=== PATIENT | female | born 1965 | race Caucasian/White ===

== ENCOUNTER 2018-12-10 07:52 | Emergency (ER) | payer BC ==
[~2018-12-10] VITALS: Ht 162.6 cm; Wt 88.0 kg
[2018-12-10 08:02] VITALS: BP 136/63
--- NOTE | 2018-12-10 08:31 | NUR ---
URINE SPECIMEN COLLECTED SENT TO LAB.
[2018-12-10 08:42] LABS: APPEARANCE,URINE Slightly Cloudy (CLEAR); BILIRUBIN,URINE Negative (NEGATIVE); BLOOD, URINE Moderate Ery/uL (NEGATIVE); COLOR,URINE Yellow (YELLOW); KETONES,URINE Negative (NEGATIVE); LEUKOCYTE ESTERASE ,URINE Negative (NEGATIVE); NITRITE, URINE Negative (NEGATIVE); PH,URINE 5.5 (5.0-8.0); PROTEIN,URINE Trace mg/dl (NEGATIVE); UGLUCOSE Negative (NEGATIVE); UROBILINOGEN,URINE 0.2 EU/dL (0.2)
[2018-12-10 08:59] LABS: BACTERIA,URINE Few /HPF (None Seen); WBC,URINE 0-3 /HPF (0-3)
[2018-12-10 09:00] LABS: SQUAMOUS EPITHELIAL CELL,UR Many /HPF (None Seen)
--- NOTE | 2018-12-10 09:33 | NUR ---
for discharge Patient discharged to home in stable condition. Written and verbal after care instructions given. Patient verbalizes understanding of instruction. home ambulatory Stable
== END 2018-12-10 09:33 | disposition home or self-care (01) ==
LOC: ER 07:54
DX: M54.5 Low back pain (principal); I10 Essential (primary) hypertension
CPT/HCPCS: 81000-TC

== ENCOUNTER 2024-01-16 01:11 | Emergency (ER) | payer BC ==
[~2024-01-16] VITALS: Ht 175.3 cm; Wt 97.5 kg
[2024-01-16 02:16] LABS: BASOPHILS % (AUTO) 0.6 % (0.0-2.0); EOSINOPHILS # (AUTO) 0.1 K/uL (0.0-0.7); EOSINOPHILS % (AUTO) 2.3 % (0.0-6.0); HEMATOCRIT 36 % (33-45); HEMOGLOBIN 11.8 g/dL (11.5-14.8); LYMPHOCYTES # (AUTO) 1.2 K/uL (0.8-4.8); LYMPHOCYTES % (AUTO) 32.3 % (20.0-44.0); MEAN CORPUSCULAR HEMOGLOBIN 27 PG (26.0-33.0); MEAN CORPUSCULAR HGB CONC 33 g/dl (31.0-36.0); MEAN CORPUSCULAR VOLUME 81 fL (82-100); MONOCYTES # (AUTO) 0.8 K/uL (0.1-1.30); MONOCYTES % (AUTO) 21.4 % (2.0-12.0); NEUTROPHILS # (AUTO) 1.6 K/uL (1.8-8.9); NEUTROPHILS % (AUTO) 43.4 % (43.0-81.0); PLATELET COUNT (AUTO) 208 K/uL (150-450); RED BLOOD CELL COUNT(AUTO) 4.46 MIL/uL (4.0-5.2); RED CELL DISTRIBUTION WIDTH 14.7 % (11.5-15.0); WHITE BLOOD COUNT (AUTO) 3.8 K/uL (4.3-11.0)
[2024-01-16] MEDS ORDERED: IOHEXOL-350 100 ML VIAL IV ONE (02:23)
[2024-01-16 02:43] LABS: CALCIUM, SERUM 8.9 mg/dL (8.5-10.1); CARBON DIOXIDE 32 mmol/L (21-32); CHLORIDE 104 mmol/L (98-107); GLUCOSE 99 mg/dL (74-106); POTASSIUM 3.6 mmol/L (3.5-5.1); SODIUM SERUM 141 mmol/L (136-145); UREA NITROGEN, BLOOD 10 mg/dL (7-18)
[2024-01-16 03:09] LABS: BASOPHILS % (MANUAL) 0 % (0.0-2.0); EOSINOPHILS % (MANUAL) 3 % (0-4); LYMPHOCYTES % (MANUAL) 30 % (16-48); MONOCYTES % (MANUAL) 19 % (0-11.0); NEUTROPHILS % (MANUAL) 48 (42-76)
[2024-01-16 03:10] LABS: ANISOCYTOSIS 1+; OVALOCYTES FEW; PLATELET ESTIMATE ADEQUATE; ROULEAUX 1+
[2024-01-16] MEDS ORDERED: PANTOPRAZOLE 40 MG VIAL ONE (03:12)
[2024-01-16] MEDS ORDERED: ONDANSETRON HCL/PF 4 MG/2 ML VIAL ONE (03:12)
[2024-01-16] MEDS: PANTOPRAZOLE 40 MG VIAL IV ONE (03:13)
[2024-01-16] MEDS: ONDANSETRON HCL/PF - ER 4 MG/2 ML VIAL IV ONE (03:13)
[2024-01-16 08:30] VITALS: BP 126/78; TEMP 98; O2SAT 99
== END 2024-01-16 08:45 | disposition home or self-care (01) ==
LOC: ER 01:13
DX: R07.89 Other chest pain (principal); R19.7 Diarrhea, unspecified; I10 Essential (primary) hypertension; Z85.3 Personal history of malignant neoplasm of breast
CPT/HCPCS: 99285; 96374; 71275; 71045; 96375; 93005; 85025; 80048; 85378; 36415; 84484 ×2; 85007; J2405 ×2; J2470; Q9967

== ENCOUNTER 2025-04-12 18:25 | Emergency (ER) | payer BC ==
[~2025-04-12] VITALS: Ht 162.6 cm; Wt 97.5 kg
[2025-04-12 19:06] LABS: PLATELET COUNT (AUTO) 252 K/uL (150-450); RED BLOOD CELL COUNT(AUTO) 3.95 MIL/uL (4.0-5.2); RED CELL DISTRIBUTION WIDTH 21.6 % (11.5-15.0); WHITE BLOOD COUNT (AUTO) 3.2 K/uL (4.3-11.0)
[2025-04-12 19:11] LABS: APPEARANCE,URINE CLEAR (CLEAR); BLOOD, URINE 3+ Ery/uL (NEGATIVE); LEUKOCYTE ESTERASE ,URINE 1+ (NEGATIVE); NITRITE, URINE NEGATIVE (NEGATIVE); UGLUCOSE NEGATIVE (NEGATIVE)
[2025-04-12 19:14] LABS: CALCIUM, SERUM 8.5 mg/dL (8.5-10.1); CREATININE 0.8 mg/dL (0.6-1.3); SODIUM SERUM 139.0 mmol/L (136-145); UREA NITROGEN, BLOOD 15.0 mg/dL (7-18)
[2025-04-12 19:20] LABS: ASPARTATE AMINOTRANSFERASE 18.0 U/L (15-37); TOTAL PROTEIN, SERUM 7.3 g/dL (6.4-8.2)
[2025-04-12 19:29] LABS: ADD URINE CULTURE YES
[2025-04-12] MEDS ORDERED: ACET500C4 PO (19:49)
[2025-04-12] MEDS ORDERED: AMOX-430 PO (19:49)
[2025-04-12] MEDS ORDERED: AZIT250T13 PO (19:49)
[2025-04-12] MEDS ORDERED: AMOX/CLAVULANATE 875 MG TABLET ONE (19:58)
[2025-04-12] MEDS ORDERED: AZITHROMYCIN 250 MG TABLET ONE (19:58)
[2025-04-12] MEDS: AMOX/CLAVULANATE 875 MG TABLET PO ONE (20:02)
[2025-04-12] MEDS: AZITHROMYCIN 250 MG TABLET PO ONE (20:03)
[2025-04-12 20:04] VITALS: BP 127/71; TEMP 98.2; O2SAT 98
== END 2025-04-12 20:06 | disposition home or self-care (01) ==
LOC: ER 18:36
DX: J18.9 Pneumonia, unspecified organism (principal); I10 Essential (primary) hypertension; Z85.3 Personal history of malignant neoplasm of breast; Z92.3 Personal history of irradiation; Z20.822 Contact with and (suspected) exposure to COVID-19
CPT/HCPCS: 36415; 71045-TC; 80048-TC; 80076-TC; 81001; 85025-TC; 87086-TC